=== PATIENT | female | born 1950 ===

== ENCOUNTER 2018-07-19 12:27 | Outpatient (REF) | payer MEDICARE, OTHER, SELFPAY ==
[2018-07-19 22:03] LABS: TSH 3.05 uIU/mL (0.358-3.74)
== END 2018-07-19 12:47 ==
LOC: NCHCN 12:27
PROVIDERS: PCP Nurse Practitioner Family; Visit Provider Registered Nurse
DX: R61 Generalized hyperhidrosis (principal)
CPT/HCPCS: 84443

== ENCOUNTER 2018-10-25 14:36 | Outpatient (REF) | payer MEDICARE, OTHER, SELFPAY ==
[2018-10-25 21:41] LABS: Abs Immature Grans 0.03 k/cumm (0.0-0.09); Absolute Basophil Count 0.04 k/cumm (0.0-0.2); Absolute Eosinophil Count 0.08 k/cumm (0.0-0.7); Absolute Lymphocyte Count 1.15 k/cumm (1.2-3.4); Absolute Monocyte Count 0.42 k/cumm (0.11-0.7); Basophils % 0.5; Eosinophils % 1.1; HCT 39.5 % (36.0-46.0); HGB 12.9 g/dL (12.0-15.5); Immature Grans % 0.4; Lymphocytes % 15.7; Mean Corp. HGB Concentration 32.7 g/dL (32.0-36.0); Mean Corpuscular Volume 82.6 fL (80-95); Mean Platelet Volume 11.3 fL (8.0-11.0); Monocytes % 5.7; Neutrophils % 76.6; Platelet Count 256 x1000/uL (130-400); RBC 4.78 m/cumm (4.00-5.20); RBC Distribution Width 17.7 % (11.7-14.6); White Blood Cell Count 7.32 k/cumm (4.4-10.8)
[2018-10-25 21:51] LABS: ALT 63 U/L (12-78); AST 54 U/L (15-37); Albumin 3.6 g/dL (3.4-5.0); Alkaline Phosphatase 98 U/L (46-116); Anion Gap 10.4 mmol/L (3-11); BUN 20 mg/dL (7-18); Bilirubin, Total 0.3 mg/dL (0.2-1.0); CO2 26.6 mmol/L (21.0-32.0); Chloride 103 mmol/L (98-107); Glucose 93 mg/dL (70-100); Magnesium 1.9 mg/dL (1.8-2.4); Potassium 4.4 mmol/L (3.5-5.1); Sodium 140 mmol/L (136-145)
== END 2018-10-25 14:56 ==
LOC: NCHCN 14:36
PROVIDERS: PCP Nurse Practitioner Family; Visit Provider Registered Nurse
DX: M79.604 Pain in right leg (principal); M79.605 Pain in left leg; R53.1 Weakness; R25.1 Tremor, unspecified; M25.562 Pain in left knee; Z79.899 Other long term (current) drug therapy
CPT/HCPCS: 80053; 83735; 85025

== ENCOUNTER 2019-12-27 11:05 | Outpatient (REF) | payer MEDICARE, OTHER, SELFPAY ==
[2019-12-27 22:30] LABS: HCT 34.8 % (36.0-46.0); HGB 10.6 g/dL (11.2-15.7); MCH 23.9 pg (27.0-33.0); MCHC 30.5 % (32.0-36.0); MCV 78.6 fL (80-95); MPV 10.6 fL (8.0-11.0); Platelet Count 332 10^3/uL (130-400); RBC 4.43 10^6/uL (3.93-5.22); RDW 17.7 % (11.7-14.6); RDW-SD 50.4 fL; WBC 6.86 10^3/uL (4.4-10.8)
[2019-12-27 22:43] LABS: Iron 19 ug/dL (50-170); Total Iron Binding Capacity 424 ug/dL (250-450); Transferrin Sat 4 % (15-50)
[2019-12-27 22:58] LABS: Ferritin 6 ng/mL (8-252)
== END 2019-12-27 11:25 ==
LOC: NCHCN 11:05
PROVIDERS: PCP Nurse Practitioner Family; Visit Provider Registered Nurse
DX: E78.5 Hyperlipidemia, unspecified (principal); I10 Essential (primary) hypertension; G25.81 Restless legs syndrome; D64.9 Anemia, unspecified
CPT/HCPCS: 85027; 82728; 83540; 83550

== ENCOUNTER 2020-01-03 17:12 | Outpatient (REF) | payer MEDICARE, OTHER, SELFPAY ==
[2020-01-03 22:13] LABS: HCT 32.3 % (36.0-46.0); HGB 10.2 g/dL (11.2-15.7); MCHC 31.6 % (32.0-36.0); MPV 10.6 fL (8.0-11.0); Platelet Count 318 10^3/uL (130-400); RBC 4.25 10^6/uL (3.93-5.22); RDW-SD 48.9 fL; WBC 7.07 10^3/uL (4.4-10.8)
== END 2020-01-03 17:32 ==
LOC: NCHCN 17:12
PROVIDERS: PCP Nurse Practitioner Family; Visit Provider Registered Nurse
DX: D64.9 Anemia, unspecified (principal); F32.9 Major depressive disorder, single episode, unspecified; R40.0 Somnolence; G47.00 Insomnia, unspecified; G25.81 Restless legs syndrome
CPT/HCPCS: 85027

== ENCOUNTER 2020-01-09 10:39 | Outpatient (REF) | payer MEDICARE, OTHER, SELFPAY ==
[2020-01-09 21:12] LABS: Vitamin B12 622 pg/mL (193-986)
== END 2020-01-09 10:59 ==
LOC: NCHCN 10:39
PROVIDERS: PCP Nurse Practitioner Family; Visit Provider Registered Nurse
DX: D64.9 Anemia, unspecified (principal)
CPT/HCPCS: 82607

== ENCOUNTER 2020-01-25 17:11 | Outpatient (REF) | payer MEDICARE, OTHER, SELFPAY ==
[2020-01-25 20:57] LABS: HCT 33.8 % (36.0-46.0); HGB 10.1 g/dL (11.2-15.7); MCH 23.7 pg (27.0-33.0); MCHC 29.9 % (32.0-36.0); MCV 79.3 fL (80-95); MPV 10.7 fL (8.0-11.0); Platelet Count 313 10^3/uL (130-400); RBC 4.26 10^6/uL (3.93-5.22); WBC 6.94 10^3/uL (4.4-10.8)
[2020-01-25 21:48] LABS: ALT 31 U/L (14-59); AST 28 U/L (15-37); Albumin 3.3 g/dL (3.4-5.0); Alkaline Phosphatase 100 U/L (46-116); Anion Gap 7.9 mmol/L (3-11); BUN 16 mg/dL (7-18); Bilirubin, Total 0.2 mg/dL (0.2-1.0); CO2 28.1 mmol/L (21.0-32.0); CREATININE 0.79 mg/dL (0.55-1.02); Calcium 9.1 mg/dL (8.5-10.1); Chloride 106 mmol/L (98-107); Ferritin 8 ng/mL (8-252); Glucose 112 mg/dL (74-106); Iron 16 ug/dL (50-170); Magnesium 1.9 mg/dL (1.8-2.4); Potassium 4.1 mmol/L (3.5-5.1); Sodium 142 mmol/L (136-145); TSH 3.13 uIU/mL (0.36-3.74); Total Iron Binding Capacity 405 ug/dL (250-450); Total Protein 6.8 g/dL (6.4-8.2); Transferrin Sat 4 % (15-50)
== END 2020-01-25 17:31 ==
LOC: NCHCN 17:11
PROVIDERS: PCP Nurse Practitioner Family; Visit Provider Registered Nurse
DX: D64.9 Anemia, unspecified (principal); R53.1 Weakness; E78.5 Hyperlipidemia, unspecified; M17.9 Osteoarthritis of knee, unspecified; E66.9 Obesity, unspecified
CPT/HCPCS: 80053; 85027; 82728; 83540; 83550; 83735; 84443

== ENCOUNTER 2020-02-02 13:28 | Outpatient (REF) | payer MEDICARE, OTHER, SELFPAY ==
[2020-02-02 21:15] LABS: HCT 34.2 % (36.0-46.0); HGB 10.4 g/dL (11.2-15.7); MCH 23.7 pg (27.0-33.0); MCHC 30.4 % (32.0-36.0); MCV 77.9 fL (80-95); MPV 10.5 fL (8.0-11.0); Platelet Count 293 10^3/uL (130-400); RBC 4.39 10^6/uL (3.93-5.22); RDW 18.5 % (11.7-14.6); RDW-SD 50.4 fL; WBC 7.05 10^3/uL (4.4-10.8)
[2020-02-02 21:59] LABS: Iron 21 ug/dL (50-170); Total Iron Binding Capacity 468 ug/dL (250-450); Transferrin Sat 4 % (15-50)
[2020-02-02 22:06] LABS: Ferritin 8 ng/mL (8-252)
== END 2020-02-02 13:48 ==
LOC: NCHCN 13:28
PROVIDERS: PCP Nurse Practitioner Family; Visit Provider Registered Nurse
DX: E64.9 Sequelae of unspecified nutritional deficiency (principal)
CPT/HCPCS: 85027; 82728; 83540; 83550

== ENCOUNTER 2020-02-13 18:04 | Outpatient (REF) | payer MEDICARE, OTHER, SELFPAY ==
[2020-02-13 20:51] LABS: HCT 34.4 % (36.0-46.0); HGB 10.5 g/dL (11.2-15.7); MCHC 30.5 % (32.0-36.0); MCV 78.5 fL (80-95); MPV 10.3 fL (8.0-11.0); Platelet Count 281 10^3/uL (130-400); RBC 4.38 10^6/uL (3.93-5.22); RDW 19.2 % (11.7-14.6); RDW-SD 53.3 fL
[2020-02-13 21:19] LABS: Iron 257 ug/dL (50-170); Total Iron Binding Capacity 448 ug/dL (250-450); Transferrin Sat 57 % (15-50)
[2020-02-13 21:29] LABS: Ferritin 11 ng/mL (8-252)
== END 2020-02-13 18:24 ==
LOC: NCHCN 18:04
PROVIDERS: PCP Nurse Practitioner Family; Visit Provider Registered Nurse
DX: D64.9 Anemia, unspecified (principal)
CPT/HCPCS: 85027; 82728; 83540; 83550

== ENCOUNTER 2020-03-12 18:40 | Outpatient (REF) | payer MEDICARE, OTHER, SELFPAY ==
[2020-03-12 22:14] LABS: HCT 37.3 % (36.0-46.0); HGB 11.5 g/dL (11.2-15.7); MCH 24.5 pg (27.0-33.0); MCHC 30.8 % (32.0-36.0); MCV 79.5 fL (80-95); MPV 11.3 fL (8.0-11.0); Platelet Count 251 10^3/uL (130-400); RBC 4.69 10^6/uL (3.93-5.22); RDW 20.8 % (11.7-14.6); RDW-SD 58.6 fL; WBC 5.49 10^3/uL (4.4-10.8)
[2020-03-12 22:46] LABS: Iron 43 ug/dL (50-170); Total Iron Binding Capacity 437 ug/dL (250-450); Transferrin Sat 10 % (15-50)
[2020-03-12 23:00] LABS: Anion Gap 4.3 mmol/L (3-11); BUN 20 mg/dL (7-18); CO2 30.7 mmol/L (21.0-32.0); CREATININE 0.94 mg/dL (0.55-1.02); Calcium 9.2 mg/dL (8.5-10.1); Chloride 105 mmol/L (98-107); Estimated GFR 59.04 (mL/min/1.73m2); Ferritin 9 ng/mL (8-252); Glucose 80 mg/dL (74-106); Potassium 4.3 mmol/L (3.5-5.1); Sodium 140 mmol/L (136-145)
== END 2020-03-12 19:00 ==
LOC: NCHCN 18:40
PROVIDERS: PCP Nurse Practitioner Family; Visit Provider Nurse Practitioner Family
DX: D64.9 Anemia, unspecified (principal); Z01.818 Encounter for other preprocedural examination
CPT/HCPCS: 80048; 85027; 82728; 83540; 83550; 85610

== ENCOUNTER 2020-03-13 13:51 | Outpatient (REF) | payer MEDICARE, OTHER, SELFPAY ==
[2020-03-13 22:45] LABS: INR 0.9 (0.9-1.1); Prothrombin Time 9.3 sec (9.3-11.0)
== END 2020-03-13 14:11 ==
LOC: NCHCN 13:51
PROVIDERS: PCP Nurse Practitioner Family; Visit Provider Nurse Practitioner Family
DX: D64.9 Anemia, unspecified (principal); Z01.818 Encounter for other preprocedural examination
CPT/HCPCS: 85610

== ENCOUNTER 2020-07-18 13:19 | Outpatient (REF) | payer MEDICARE, OTHER, SELFPAY ==
[2020-07-18 13:05] LABS: HCT 36.7 % (36.0-46.0); HGB 11.2 g/dL (11.2-15.7); MCH 23.6 pg (27.0-33.0); MCHC 30.5 % (32.0-36.0); MCV 77.3 fL (80-95); MPV 10.1 fL (8.0-11.0); Platelet Count 283 10^3/uL (130-400); RBC 4.75 10^6/uL (3.93-5.22); RDW 18.2 % (11.7-14.6); RDW-SD 49.5 fL; WBC 6.58 10^3/uL (4.4-10.8)
[2020-07-18 13:33] LABS: Hemoglobin A1C 6.2 % (<5.7)
== END 2020-07-18 13:20 | disposition home or self-care (01) ==
LOC: NCHCN 13:19
PROVIDERS: PCP Nurse Practitioner Family; Visit Provider Registered Nurse
DX: D64.9 Anemia, unspecified (principal); R73.03 Prediabetes
CPT/HCPCS: 85027; 83036

== ENCOUNTER 2021-03-05 16:11 | Outpatient (REF) | payer MEDICARE, OTHER, SELFPAY ==
[2021-03-05 19:18] LABS: HCT 36.8 % (36.0-46.0); HGB 11.4 g/dL (11.2-15.7); MCH 25.4 pg (27.0-33.0); MPV 10.1 fL (8.0-11.0); Platelet Count 279 10^3/uL (130-400); RBC 4.49 10^6/uL (3.93-5.22); RDW 18.3 % (11.7-14.6); RDW-SD 53.9 fL; WBC 6.59 10^3/uL (4.4-10.8)
[2021-03-05 19:36] LABS: Hemoglobin A1C 6.3 % (<5.7)
[2021-03-05 19:47] LABS: ALT 46 U/L (14-59); AST 34 U/L (15-37); Albumin 3.6 g/dL (3.4-5.0); Alkaline Phosphatase 112 U/L (46-116); Anion Gap 7.4 mmol/L (3-11); BUN 19 mg/dL (7-18); Bilirubin, Total 0.3 mg/dL (0.2-1.0); CO2 28.6 mmol/L (21.0-32.0); CREATININE 0.8 mg/dL (0.55-1.02); Calcium 9.1 mg/dL (8.5-10.1); Chloride 102 mmol/L (98-107); Ferritin 14 ng/mL (8-252); Glucose 116 mg/dL (74-106); Potassium 4.3 mmol/L (3.5-5.1); Sodium 138 mmol/L (136-145); Total Protein 7.1 g/dL (6.4-8.2)
== END 2021-03-05 16:12 | disposition home or self-care (01) ==
LOC: NCHCN 16:11
PROVIDERS: PCP Nurse Practitioner Family; Visit Provider Nurse Practitioner Community Health
DX: D64.9 Anemia, unspecified (principal); I10 Essential (primary) hypertension; R01.1 Cardiac murmur, unspecified
CPT/HCPCS: 80053; 85027; 82728; 83036

== ENCOUNTER 2021-04-30 16:32 | Outpatient (REF) | payer MEDICARE, OTHER, SELFPAY ==
--- OUTSIDE RECORDS SUMMARY | 2021-04-30 16:36 | XMS_ITS | CCD ---
:1950 Author Care Team Providers Name Role Phone MD KRISTI Attending Physician Unavailable Vital Signs Unknown or Not Available. Allergies Allergy Code Allergy Type Reaction Status TOPAMAX 299632 Drug allergy Nausea Active polyester {Clinical 0 Allergy to RASH; WITH Active monitoring substance PROLONGED EXPOSURE unavailable} CODEINE 2670 Drug allergy Nausea Active REQUIP 632155 Drug allergy ITCHING Active PERCOCET 46565 Drug allergy Active TETRACYCLINE 35073 Drug allergy Nausea Active LATEX 2016515 Allergy to RASH Active substance Procedures Unknown or Not Available. History of Immunizations Unknown or Not Available. Problems Unknown or Not Available. Results Unknown or Not Available. Active Medications Unknown or Not Available. Medications Administered During Visit Unknown or Not Available. Encounters Encounter Diagnosis Diagnosis Code Start Date Pseudarthrosis after fusion or arthrodesis [id number] 11/12/2020 Social History Smoking Status Code Start Date End Date Former smoker [id number] Patient Decision Aids Unknown or Not Available. Discharge Instructions You were admitted to [facility] on 11/12/2020 09:01 with a principal diagnosis of Pseudarthrosis after fusion or arthrodesis You were discharged from [facility] on 11/12/2020 09:01 Should you have any questions prior to d ischarge, please contact a member of your healthcare team. If you have left the spital and have any questions, please contact your primary care physician. Chief Complaint and Reason For Visit Unknown or Not Available. Function Status Unknown or Not Available. Plan of Care Unknown or Not Available. Referral/Transition of Care Unknown or Not Available.
--- OUTSIDE RECORDS SUMMARY | 2021-04-30 16:36 | XMS_ITS | CCD ---
:1950 Author Care Team Providers Name Role Phone MICHELA OBRIEN Attending Physician Unavailable Vital Signs Unknown or Not Available. Allergies Allergy Code Allergy Type Reaction Status TOPAMAX 149857 Drug allergy Nausea Active polyester {Clinical 0 Allergy to RASH; WITH Active monitoring substance PROLONGED EXPOSURE unavailable} CODEINE 2670 Drug allergy Nausea Active REQUIP 375208 Drug allergy ITCHING Active PERCOCET 50281 Drug allergy Active TETRACYCLINE 92315 Drug allergy Nausea Active LATEX 0570377 Allergy to RASH Active substance Procedures Unknown or Not Available. History of Immunizations Unknown or Not Available. Problems Unknown or Not Available. Results Unknown or Not Available. Active Medications Unknown or Not Available. Medications Administered During Visit Unknown or Not Available. 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
[2021-05-02 11:17] LABS: COVID-19 RT-PCR UVMMC Result Negative (Negative)
== END 2021-04-30 16:33 | disposition home or self-care (01) ==
LOC: NCHCN 16:32
PROVIDERS: PCP Nurse Practitioner Family; Visit Provider Family Medicine
DX: Z20.822 Contact with and (suspected) exposure to COVID-19 (principal); J06.9 Acute upper respiratory infection, unspecified
CPT/HCPCS: U0003; U0005

== ENCOUNTER 2021-11-05 14:53 | Outpatient (REF) | payer MEDICARE, OTHER, SELFPAY ==
[2021-11-05 15:13] LABS: HCT 41.8 % (36.0-46.0); HGB 13.9 g/dL (11.2-15.7); MCH 28.8 pg (27.0-33.0); MCHC 33.3 % (32.0-36.0); MCV 87 fL (80-95); Platelet Count 302 10^3/uL (130-400); RBC 4.82 10^6/uL (3.93-5.22); RDW 14.7 % (11.7-14.6); RDW-SD 47.2 fL; WBC 7.02 10^3/uL (4.4-10.8)
[2021-11-05 15:37] LABS: ALT 32 U/L (14-59); AST 30 U/L (15-37); Albumin 3.5 g/dL (3.4-5.0); Alkaline Phosphatase 92 U/L (46-116); Anion Gap 8.6 mmol/L (3-11); BUN 18 mg/dL (7-18); Bilirubin, Total 0.3 mg/dL (0.2-1.0); CO2 28.4 mmol/L (21.0-32.0); Calcium 9.4 mg/dL (8.5-10.1); Chloride 101 mmol/L (98-107); Estimated GFR 54.66 (mL/min/1.73m2); Glucose 108 mg/dL (74-106); Potassium 4.2 mmol/L (3.5-5.1); Sodium 138 mmol/L (136-145); Total Protein 7.7 g/dL (6.4-8.2)
[2021-11-05 17:04] LABS: Hemoglobin A1C 6.4 % (<5.7)
[2021-11-06 04:40] LABS: Vitamin D 25 Total 20.2 ng/mL (30-100)
== END 2021-11-05 14:54 | disposition home or self-care (01) ==
LOC: NCHCN 14:53
PROVIDERS: PCP Nurse Practitioner Family; Referring Provider Registered Nurse; Visit Provider Registered Nurse
DX: Z01.818 Encounter for other preprocedural examination (principal); M48.061 Spinal stenosis, lumbar region without neurogenic claudication
CPT/HCPCS: 80053; 82306; 85027; 87081; 83036

== ENCOUNTER 2022-05-01 11:41 | Outpatient (REF) | payer MEDICARE, OTHER, SELFPAY ==
[2022-05-01 14:27] LABS: BUN 18 mg/dL (7-18); CREATININE 0.8 mg/dL (0.55-1.02); Calcium 9.2 mg/dL (8.5-10.1); Chloride 102 mmol/L (98-107); Estimated GFR 78.72 (mL/min/1.73m2); Glucose 103 mg/dL (74-106); Potassium 4.5 mmol/L (3.5-5.1); Sodium 137 mmol/L (136-145)
== END 2022-05-01 11:42 | disposition home or self-care (01) ==
LOC: NCHCN 11:41
PROVIDERS: PCP Nurse Practitioner Family; Visit Provider Registered Nurse
DX: Z02.89 Encounter for other administrative examinations (principal); R73.03 Prediabetes
CPT/HCPCS: 80048